=== PATIENT | female | born 1975 | race Native Hawaiian/Other Pacific Islander ===

== ENCOUNTER 2017-08-08 19:08 | Emergency (ER) | payer SELFPAY ==
[2017-08-08 19:27] VITALS: BP 130/87
[2017-08-08] MEDS ORDERED: MOTRIN PO ONE (19:27)
--- NOTE | 2017-08-09 02:18 | Emergency Department Report ---
ED Rash HPI - HPI Chief Complaint: Pain General Stated Complaint: RIGHT ARM SWOLLEN Time Seen by Provider: 08/09/17 02:17 Duration: 2 Days Location: Upper Extremities (left arm) Suspected Cause: Other (infected tech to) Rash Symptoms: Yes Itching, Yes Peeling, Yes Myalgias (left arm), No Facial Swelling, No Tongue/Oral Swelling, No Breathing Difficulties, No Choking Sensation, No Wheezing/Dyspnea, No Blistering, No Fever, No Lightheaded, No Malaise Severity: moderate Other History: Physical 11-year-old female presents with swelling and pain to left upper arm after getting a tattoo Monday night. Patient reports left arm felt fine after receiving a tattoo Monday night. She woke up yesterday morning with swelling and redness below tattoo site. Patient's tattoo is on the left upper arm from left shoulder to left elbow. Patient reports this is the 11th tattoo she has received and has never had any issues like this before. Patient reports swelling is from right lateral elbow to wrist. The pain is 10 out of 10 constant and worse with touch. Denies fever, short of breath, chest pain, difficulty breathing, tongue swelling, numbness or tingling, and difficulty swallowing. ED Review of Systems ROS: Stated complaint: RIGHT ARM SWOLLEN Other details as noted in HPI Constitutional: denies: chills, fever Respiratory: denies: cough, shortness of breath, wheezing Cardiovascular: denies: chest pain, palpitations Gastrointestinal: denies: abdominal pain, nausea, diarrhea Musculoskeletal: arthralgia (left arm pain). denies: back pain, joint swelling Skin: rash (from left lateral elbow to wrist). denies: lesions Neurological: denies: headache, weakness, numbness, paresthesias Psychiatric: denies: anxiety, depression ED Past Medical Hx - Past Medical History Previous Medical History?: No - Surgical History Past Surgical History?: Yes Additional Surgical History: both elbows, 2 c-sections - Social History Smoking Status: Former Smoker Substance Use Type: Alcohol - Medications Home Medications: Home Medications Medication Instructions Recorded Confirmed Last Taken Type Ibuprofen 800 mg PO Q6H PRN #20 tablet 08/09/17 Unknown Rx Sulfamethoxazole/Trimethoprim 1 each PO BID 10 Days #20 tablet 08/09/17 Unknown Rx [Bactrim DS TAB] Rash Exam - Exam General: Vital signs noted. No distress. Alert and acting appropriately. HEENT: No Periorbital Edema, No Conjuctival Injection, No Chemosis, No Perioral Edema, No Tongue Edema, No Uvular Edema, No Compromised Airway, No Drooling Lungs: Yes Good Air Exchange (Normal Breath Sounds), No Wheezes, No Ronchi, No Stridor, No Cough, No Labored Respirations, No Retractions, No Use of Accessory Muscles, No Other Abnormal Lung Sounds Heart: Yes Regular, No Murmur Skin: Yes Tenderness, Yes Erythema (15 cm area of erythematous, swelling, tenderness to palpation, warm from left lateral elbow to wrist), Yes Edema, No Urticarial Rash, No Maculopapular Rash, No Morbilliform rash, No Bulla(e), No Excoriations, No Weeping, No Encrustations, No Other ED Course Vital Signs 08/08/17 19:22 Temperature 98.7 F Pulse Rate 101 H Respiratory 16 Rate Blood Pressure 130/87 O2 Sat by Pulse 99 Oximetry ED Medical Decision Making - Lab Data Result diagrams: 08/09/17 02:52 08/09/17 02:52 - Medical Decision Making This is a 41y.o. female that presents with left upper arm erythema, swelling, and pain 2 days status post tattoo. Patient is stable and was examined by me. Vitals normal. Ordered CBC and BMP all WNL. Physical assessment susceptible of cellulitis. Given tetanus vaccination and Bactrim DS. Start Bactrim DS and ibuprofen. Continue using warm compresses for swelling. Elevate left arm while sitting. Discussed plan with patient and she agreed with plan. Discharged home in stable condition. Follow up with PCP in 24-72 hours. Referred to [facility] for follow-up. Critical care attestation.: If time is entered above; I have spent that time in minutes in the direct care of this critically ill patient, excluding procedure time. ED Disposition Clinical Impression: Cellulitis of arm, left Disposition: DC-01 TO HOME OR SELFCARE Is pt being admited?: No Does the pt Need Aspirin: No Condition: Stable Instructions: Cellulitis (ED) Additional Instructions: Wash area after with soap and water daily. Complete the full course of Bactrim antibiotics as prescribed. Elevate left arm while sitting to improve swelling. Follow up with primary care provider in 24-72 hours. Return to ER if swelling increases, redness increase, severe pain, and fever. Prescriptions: Ibuprofen 800 mg PO Q6H PRN #20 tablet PRN Reason: Pain Sulfamethoxazole/Trimethoprim [Bactrim DS TAB] 1 each PO BID 10 Days #20 tablet Referrals: [facility] [Outside] - 3-5 Days [facility] [Outside] - 3-5 Days [facility] [Outside] - 3-5 Days Time of Disposition: 02:57 Print Language: CENTRAL AFRICAN
[2017-08-09 03:19] LABS: Hematocrit 38.2 % (30.3-42.9); Hemoglobin 12.7 gm/dl (10.1-14.3); Mean Corpuscular HGB Conc 33 % (30-34); Mean Corpuscular Hemoglobin 27 pg (28-32); Mean Corpuscular Volume 81 fl (79-97); Platelet Count 317 K/mm3 (140-440); Red Cell Distribution Width 13.6 % (13.2-15.2)
[2017-08-09] MEDS ORDERED: BOOSTRIX IM ONE (03:19)
[2017-08-09] MEDS ORDERED: BACTRIM DS PO ONE (03:27)
[2017-08-09 03:36] LABS: BUN/Creatinine Ratio 10; Blood Urea Nitrogen 7 mg/dL (7-17); Calcium 8.6 mg/dL (8.4-10.2); Hemolysis Index 3
[2017-08-09] MEDS ORDERED: BACTRIM DS ONE (03:37)
== END 2017-08-09 03:43 | disposition home or self-care (01) ==
LOC: ED 19:08
DX: L03.114 Cellulitis of left upper limb (principal); Z87.891 Personal history of nicotine dependence; Z88.6 Allergy status to analgesic agent
CPT/HCPCS: 36415; 80048; 85027; 90471; 99283

== ENCOUNTER 2018-05-15 18:22 | Emergency (ER) | payer OTHER ==
[2018-05-15 18:52] VITALS: BP 138/87
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
--- NOTE | 2018-05-15 20:36 | XRay Report ---
PROCEDURE: RIGHT ELBOW, 2 VIEWS TECHNIQUE: RIGHT elbow radiographs, AP and lateral views. CPT 99789 HISTORY: Trauma COMPARISONS: None . FINDINGS: Fracture (s) and/or Dislocation(s): None . Alignment: Normal . Joint space(s): Normal . Soft tissues: Normal . Bone mineralization: Normal . Foreign bodies: None . IMPRESSION: Normal Examination . This document is electronically signed by Kade Beasley MD., May 15 2018 08:34:19 PM ET
[2018-05-15] MEDS ORDERED: ULTRAM PO ONE (21:44)
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
== END 2018-05-15 22:40 | disposition home or self-care (01) ==
LOC: ED 18:22
DX: S46.911A Strain of unspecified muscle, fascia and tendon at shoulder and upper arm level, right arm, initial encounter (principal); F17.200 Nicotine dependence, unspecified, uncomplicated; Z88.5 Allergy status to narcotic agent; W22.03XA Walked into furniture, initial encounter; Y93.89 Activity, other specified; Y92.488 Other paved roadways as the place of occurrence of the external cause; Y99.8 Other external cause status
CPT/HCPCS: 99283